=== PATIENT | female | born 1935 | race Caucasian/White ===

== ENCOUNTER 2017-03-03 15:02 | Emergency (ER) | payer MEDICARE, BC ==
--- NOTE | ~2017-03-03 | ER ---
PATIENT'S NAME: HUGO LANDA [facility] AGE: 81 Y [address] ROOM: [place] [address] LOCATION: ED ADMIT DATE: 03/03/2017 ER/Outpatient Report DISCHARGE DATE: 03/03/2017 FAMILY PHYSICIAN: Gregorio Umanzor MD ATTENDING PHYSICIAN: Juju Muhammad Time of Arrival: 1502 hours. Time Seen: 1502 hours. IDENTIFICATION: 81-year-old female. CHIEF COMPLAINT: Left-sided facial droop and aphagia. HISTORY OF PRESENT ILLNESS: The patient is an 81-year-old female who went and got her hair done this morning and then when she got home, she laid down just about 20 minutes prior to 1; when she woke up 20 minutes later, she had slurred speech, facial droop, and was talking gibberish, difficulty finding her words according to her [id number]. This lasted approximately 2-3 minutes. She then went to Dr. Umanzor' office who sent her here. Her symptoms have completely resolved at this time. The patient states she has had a prior TIA and is on Plavix. She had an MRI of her brain in 2013, which showed a small rounded area of acute white matter ischemia at the posterior left frontal and anterior left parietal white matter, patchy periventricular small vessel changes, and a large stable scalp lesion. She states that she does not take aspirin because she cannot tolerate aspirin. At that stay in 2013, she had right-sided weakness. 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 PAST MEDICAL HISTORY: ALLERGIES: SULFA. CURRENT MEDICATIONS: 1. Plavix. 2. Pravachol. 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 PATIENT'S NAME: HUGO LANDA [facility] AGE: 81 Y [address] ROOM: [place] [address] LOCATION: ED ADMIT DATE: 03/03/2017 ER/Outpatient Report DISCHARGE DATE: 03/03/2017 FAMILY PHYSICIAN: Gregorio Umanzor MD ATTENDING PHYSICIAN: Juju Muhammad PRIOR SURGERIES: D and C. FAMILY HISTORY: Mother had a heart murmur and CHF, father of MRSA infection, daughter had MS and of nasopharyngeal cancer. SOCIAL HISTORY: The patient lives with her here in [place]. Tobacco use, less than 1/4 pack per day. Alcohol use, occasional Vonda, she says maybe [address] Gregorio Umanzor is her primary care physician. REVIEW OF SYSTEMS: The patient has no chest pain. No cough or shortness of breath. When she woke up, she did feel a frontal sinus pressure that has since relieved. All systems reviewed and negative other than what is noted in the HPI. PHYSICAL EXAMINATION: VITAL SIGNS: Weight 55 kg, blood pressure 157/83, pulse 70, respirations 18, temperature 97.9, and saturations 98% on room air. GENERAL: An 81-year-old female, in no acute distress. She does have some ataxia, she said that that is normal for her. HEENT: Head: Normocephalic, atraumatic. She does have a large right posteroparietal scalp lesion which has been present for a long time. Eyes: Pupils equal and reactive to light and accommodation. Extraocular movements intact. Nose: Mucosa pink. No lesions. Mouth: No lesions. Pharynx benign. NECK: Supple. No lymphadenopathy. No thyromegaly. LUNGS: Clear to auscultation. HEART: Regular rate and rhythm. No murmur, rub, or gallop. ABDOMEN: Bowel sounds present. Soft, nondistended. No hepatosplenomegaly. No palpable masses. Nontender. SKIN: [place], warm, and dry. No lesions or rashes noted. NEURO: The patient is alert and oriented x4. Cranial nerves 2 through 12 grossly intact. Motor strength 5/5 throughout. Sensation is intact to light touch. NIH stroke scale score is 0 and a copy is included on the chart. LABORATORY DATA: Troponin I less than 0.040. Sodium 143, potassium 4.0, chloride 108, CO2 of 26, BUN 12, creatinine 0.7, and blood sugar 88. EKG: Sinus rhythm at 64 beats per minute, no acute ST elevation or depression. Hemoglobin 14, hematocrit 42.4, platelets 277, and white count 4.6 with a normal differential. INR 0.99. PATIENT'S NAME: HUGO LANDA [facility] AGE: 81 Y [address] ROOM: [place] [address] LOCATION: [facility] ADMIT DATE: 03/03/2017 ER/Outpatient Report DISCHARGE DATE: 03/03/2017 FAMILY PHYSICIAN: Gregorio Umanzor MD ATTENDING PHYSICIAN: Juju Muhammad EMERGENCY DEPARTMENT COURSE: The patient remained hemodynamically stable and asymptomatic throughout her stay here in the emergency room. IMPRESSION: Transient ischemic attack with complete resolution at this time. PLAN: I did recommend that she be admitted to the hospital with her previous history and her symptoms. Dr. Umanzor was also contacted. The patient refuses to stay. She does understand the risks, they were gone over in detail and quite a lot of time was spent with her and her [id number]. TIA handout provided. Rest. Continue Plavix. Return immediately if any symptoms and follow up with Dr. Umanzor on Monday. The patient understands and agrees, and all questions were answered in detail. JUJU MUHAMMAD MD CAR/modl /[id number] d: 03/03/17 2332 t: 03/07/17 0649, OUTPATIENT REPORT
[2017-03-03 15:43] LABS: BASOPHIL # 0.1 K/uL (0.0-0.2); BASOPHIL % 1.1 %; EOSINOPHIL # 0.1 K/uL (0.0-0.5); EOSINOPHIL % 1.1 %; HEMATOCRIT 42.4 % (30.0-46.0); IMMATURE GRANULOCYTE % 0.2 %; LYMPHOCYTE # 1.3 K/uL (0.8-4.0); LYMPHOCYTE % 27.9 %; MCH 30.4 pg (27.0-34.0); MONOCYTE # 0.4 K/uL (0.0-1.0); MONOCYTE % 7.9 %; MPV 9.2 fl (9.4-12.4); NEUTROPHIL # (ANC) 2.8 K/uL (1.8-7.8); NEUTROPHIL % 61.8 %; NRBC % 0 /100WBC (0-0.00); PLATELET COUNT 277 K/uL (150-450); RBC 4.61 M/uL (3.00-5.00); RDW-CV 12.3 % (11.9-14.6); WBC 4.6 K/uL (4.0-11.0)
[2017-03-03 15:53] LABS: INR - (THERAPEUTIC) 0.99 (0.92-1.07); PROTIME 10.4 SECONDS (9.8-11.4); PTT 25 SECONDS (25-32)
[2017-03-03 15:58] LABS: BLOOD UREA NITROGEN 12 mg/dL (6-24); CALCIUM 8.9 mg/dL (8.5-10.5); CHLORIDE 108 mMol/L (96-110); CO2 26 mMol/L (22-32); CREATININE 0.7 mg/dL (0.5-1.1); ESTIMATED GFR (MDRD EQUATION) > 60; PHOSPHORUS 2.6 mg/dL (2.5-4.9); SODIUM 143 mMol/L (135-145)
[2017-05-05] MEDS ORDERED: PRILOSEC20 MG PO (14:27)
[2017-05-05] MEDS ORDERED: ASPIRIN EC81 MG PO (14:30)
[2017-05-05] MEDS ORDERED: PLAVIX75 MG PO (14:54)
[2017-05-05] MEDS ORDERED: PRADAXA75 MG PO (14:55)
[2017-05-05] MEDS ORDERED: [UNRECOGNIZED DRUG - OTHER] PO (14:56)
== END 2017-03-03 16:21 | disposition disaster alternative care site (69) ==
LOC: GMED 15:02
PROVIDERS: Family Medicine
DX: G45.9 Transient cerebral ischemic attack, unspecified (principal); E78.5 Hyperlipidemia, unspecified; Z88.2 Allergy status to sulfonamides

== ENCOUNTER → 2017-05-08 | Day surgery (SDC) | payer MEDICARE, BC ==
[~2017-05-08] VITALS: Ht 161.3 cm; Wt 51.6 kg
[~2017-05-08] MED LIST: ASPIRIN EC81 MG PO; PLAVIX75 MG PO; PRADAXA75 MG PO; PRILOSEC20 MG PO; [UNRECOGNIZED DRUG - OTHER] PO
--- NOTE | ~2017-05-08 | OR ---
PATIENT'S NAME: HUGO LANDA [facility] AGE: 81 Y [address] ROOM: [place] [address] LOCATION: [facility] ADMIT DATE: 05/08/2017 OR/Procedure Report DISCHARGE DATE: FAMILY PHYSICIAN: BAY ROJAS MD ATTENDING PHYSICIAN: Nancy Lane SURGEON: Nancy Lane MD PICTURE FRAMER: DATE OF PROCEDURE: 06/07/2017 PROCEDURES PERFORMED: 1. Fiberoptic bronchoscopy. 2. Transbronchial biopsy. 3. Endobronchial biopsy. 4. Transbronchial brushing. 5. Fluoroscopic guidance. 6. Bronchoalveolar lavage. CONSENT: Risks and benefits of the procedure were discussed with the patient including the risk of bleeding, infection, pneumothorax. The patient agrees to proceed with the procedure. INDICATION FOR PROCEDURE: Hemoptysis with lung mass. PROCEDURE IN DETAIL: After the informed consent, appropriate time-out was called by me and the nursing staff. The patient was put to general anesthesia using an LMA. Please refer to the Anesthesiology record. The bronchoscope was introduced through the LMA into the tracheobronchial tree. There was no immediate complication. The patient tolerated the procedure well. FINDINGS: For instruction, please refer to the previous bronchoscopy report. The vocal cords are normal. Breathing normal with good breathing and phonation. The trachea was normal in caliber. There were no endobronchial lesions or secretion. The bairon was sharp, nonsplayed. The right mainstem was patent. The takeoff of the bairon was 1.5 cm of the bairon. Right upper lobe was anatomically correct with no endobronchial lesions or secretion. The right middle bronchus intermedius was patent with no endobronchial lesions or secretions. The right lower lobe was patent with no endobronchial lesions or secretions. The left mainstem was patent with no endobronchial lesions or secretions. Left upper lobe appears to have almost complete occlusion with a possible PATIENT'S NAME: HUGO LANDA [facility] AGE: 81 Y [address] ROOM: [place] [address] LOCATION: [facility] ADMIT DATE: 05/08/2017 OR/Procedure Report DISCHARGE DATE: FAMILY PHYSICIAN: BAY ROJAS MD ATTENDING PHYSICIAN: Nancy Lane endobronchial lesion and compression. The right lower lobe was patent with no endobronchial lesions or secretions. There was blood oozing from the left upper lobe. After the initial inspection, the bronchoscope was retracted to the left mainstem. Transbronchial brush was done under fluoroscopic guidance. In the left upper lobe, after that, the biopsy forceps was taken to the left upper lobe. Endobronchial and transbronchial biopsy under fluoroscopic guidance was done x5. Then, bronchoalveolar lavage was done in the left upper lobe. After that the bleeding started which has been ongoing for the past few weeks, the APC probe was introduced through the working channel of the bronchoscope. Using a effect, the area of the bleeding was located and then was cauterized. After the initial cautery, the bleeding stopped and the area was cleaned and washed out with saline and then another round of cauterization was done at site, there were no immediate bleeding left. The bronchoscope was withdrawn. Then, the patient was extubated and transferred to PACU in stable condition. ESTIMATED BLOOD LOSS: Estimated blood loss was 0 mL from procedure. CONCLUSION: 1. Successful fiberoptic bronchoscopy and transbronchial and endobronchial biopsies. 2. Transbronchial brushing and bronchoalveolar lavage. 3. Successful APC of bleeding endobronchial lesion. RECOMMENDATIONS: Follow up pathology. We will follow up with you. Thank you for allowing me to participate in care of this patient. NANCY LANE MD GSK/modl PATIENT'S NAME: HUGO LANDA [facility] AGE: 81 Y [address] ROOM: [place] [address] LOCATION: [facility] ADMIT DATE: 05/08/2017 OR/Procedure Report DISCHARGE DATE: FAMILY PHYSICIAN: BAY ROJAS MD ATTENDING PHYSICIAN: Nancy Lane /[id number] d: 05/25/17 0118 t: 05/28/17 0909, OPERATIVE SUMMARY
== END | disposition disaster alternative care site (69) ==
LOC: GPOC 05-05 10:00
PROC: 0B9G8ZX Drainage of Left Upper Lung Lobe, Via Natural or Artificial Opening Endoscopic, Diagnostic (ICD-10-PCS; principal; 2017-05-08)
PROC: 0BB88ZX Excision of Left Upper Lobe Bronchus, Via Natural or Artificial Opening Endoscopic, Diagnostic (ICD-10-PCS; 2017-05-08)
PROC: 0BB88ZX Excision of Left Upper Lobe Bronchus, Via Natural or Artificial Opening Endoscopic, Diagnostic (ICD-10-PCS; 2017-05-08)
PROC: 0BBG8ZX Excision of Left Upper Lung Lobe, Via Natural or Artificial Opening Endoscopic, Diagnostic (ICD-10-PCS; 2017-05-08)
PROC: 0B5 Respiratory System, Destruction (ICD-10-PCS; 2017-05-08)
DX: C34.12 Malignant neoplasm of upper lobe, left bronchus or lung (principal); R04.2 Hemoptysis; G43.909 Migraine, unspecified, not intractable, without status migrainosus; E78.5 Hyperlipidemia, unspecified; Z86.73 Personal history of transient ischemic attack (TIA), and cerebral infarction without residual deficits; Z88.2 Allergy status to sulfonamides; Z88.8 Allergy status to other drugs, medicaments and biological substances; Z98.49 Cataract extraction status, unspecified eye; Z98.890 Other specified postprocedural states
CPT/HCPCS: J0171; J1100; J2001; J2405; J3010; J7030; J7120

== ENCOUNTER → 2017-05-17 | Outpatient (CLI) | payer MEDICARE, BC | END | disposition disaster alternative care site (69) | LOC: GKIC 10:04 | DX: C34.02 Malignant neoplasm of left main bronchus (principal) | CPT/HCPCS: A9552 ==